=== PATIENT | male | born 1940 | race Caucasian/White ===

== ENCOUNTER 2017-04-07 00:22 | Inpatient (IN) | payer OTHER, MEDICARE ==
[~2017-04-07] VITALS: Ht 177.8 cm; Wt 102.1 kg
--- NOTE | 2017-04-07 01:11 | RADIOLOGY REPORT ---
EXAMINATION: XR PORTABLE CHEST CLINICAL INFORMATION: Fever. Chills. COMPARISON: Chest x-ray July 29, 2008 TECHNIQUE: Portable frontal view of the chest was obtained. FINDINGS: There is focal dense consolidation at the right lung base. Left lung is clear. No pulmonary vascular congestion. No pneumothorax. Cardiomediastinal contours normal. IMPRESSION: Right lower lobe pneumonia.
[2017-04-07 01:21] LABS: ABSOLUTE BASOPHIL COUNT 0 /CUMM (0.0-0.2); ABSOLUTE EOSINOPHIL COUNT 0 /CUMM (0.0-0.7); ABSOLUTE GRANULOCYTE CT 9.8 /CUMM (1.4-6.5); ABSOLUTE LYMPH COUNT 0.1 /CUMM (1.2-3.4); ABSOLUTE MONOCYTE COUNT 0.5 /CUMM (0.10-0.60); BASOPHIL % 0.5 % (0.0-2.0); EOSINOPHIL % 0.2 % (0-5); GRANULOCYTE % 93.6 % (42.2-75.2); HEMATOCRIT 43.8 % (42-52); MEAN CORPUSCULAR HGB 28.8 PG (27.0-31.0); MEAN CORPUSCULAR HGB CONC 33.2 G/DL (33.0-37.0); MEAN CORPUSCULAR VOLUME 86.9 FL (80.0-94.0); MEAN PLATELET VOLUME 8.8 FL (7.4-10.4); PLATELET COUNT 148 /CUMM (130-400); RED BLOOD CELL CT 5.05 /CUMM (4.70-6.10); WHITE BLOOD CELL COUNT 10.4 /CUMM (4.8-10.8)
[2017-04-07 01:26] LABS: PT 27.9 SEC (9.4-12.5); PTT 37 SEC (25-37)
--- NOTE | 2017-04-07 02:36 | ED GENERAL ADULT ---
History of Present Illness General Chief Complaint: Altered Mental Status Stated Complaint: AMS AND TREMORS Source: patient, family, old records, EMS Exam Limitations: no limitations Vital Signs & Intake/Output Vital Signs & Intake/Output Vital Signs Date Time Temp Pulse Resp B/P B/P Pulse O2 O2 Flow FiO2 Mean Ox Delivery Rate 04/07 0246 99.8 87 20 101/67 97 Nasal 2.0L Cannula 04/07 0226 100.0 04/07 0159 100.0 89 22 119/67 96 Nasal 2.0L Cannula 04/07 0107 99.6 04/07 0037 99.4 99 20 133/66 95 Nasal 2.0L Cannula Allergies Coded Allergies: MDX - Iodine (Iodine) (UNKNOWN 12/05/13) Core Measure Meds Pre-Hospital coumadin Triage Note: PT BIBA FROM HOME WITH SEVERE TREMORS FOLLOWED BY SHORT EPISODE OF AMS AT AROUND 11PM MARKETING UNDERWRITER. PT ARRIVES ALERT AND ORIENTED X THREE ON ARRIVAL. NO TREMORS NOTED AT THIS TIME. PT BIT HIS TOUGH MARKETING UNDERWRITER WHEN HE HAD TREMORS. NOTED OLD BLODDY MOUTH. NO ACTIVE BLEEDING. NO C/O CHEST PAIN. NO C/O RESPIRATORY DISTRESS. O2 SAT NOTED 93% RA. PLACED ON 2L NC STATING 96% AT THIS TIME. NO C/O COUGHS, NO C/O SORETHROAT. TEMPERATURE 99.4 ORAL. PT HAS HISTORY OF AFIB AND ON CURRENT COUMADIN. PT ALSO REPORTS THAT HE HAS "RIGHT LUNG 95% NOT WORKING" NO C/O "UNCOMFORTABLE"ABDOMEN. DENIES NAUSEA AND VOMTING. NO URINARY SYMTPOMS REPORTED. DR. RUST AT BEDSIDE. Triage Nurses Notes Reviewed? yes Onset: Just prior to arrival Duration: hour(s):, changing over time, continues in ED Timing: recent history Injury Environment: home Severity: severe No Modifying Factors: none Associated Symptoms: cough HPI: Spouse reports several days prior to admission patient is had nonproductive cough. Several hours prior to admission patient complains of shaking chills feeling cold with confusion weakness. There's been no fever nausea vomiting diarrhea chest pain shortness breath headache dysuria rash bleeding reported. Past History Travel History Traveled to [place] past 21 day No Medical History Any Pertinent Medical History? 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 No Review of Systems Review of Systems Constitutional: Reports: see HPI, chills, weakness. EENTM: Reports: no symptoms. Respiratory: Reports: see HPI, cough. Denies: sputum production. Cardiovascular: Reports: no symptoms. GI: Reports: no symptoms. Genitourinary: Reports: no symptoms. Musculoskeletal: Reports: no symptoms. Skin: Reports: no symptoms. Neurological/Psychological: Reports: no symptoms. Hematologic/Endocrine: Reports: no symptoms. Immunologic/Allergic: Reports: no symptoms. All Other Systems: Reviewed and Negative Physical Exam Physical Exam General Appearance: well developed/nourished, alert, awake, anxious, moderate distress Head: atraumatic, normal appearance Eyes: Bilateral: normal appearance, PERRL, EOMI. Ears, Nose, Throat: normal pharynx, normal ENT inspection, hearing grossly normal Neck: normal inspection, supple, full range of motion, no midline tenderness Respiratory: chest non-tender, no respiratory distress, quiet respiration, crackles Cardiovascular: regular rate/rhythm, normal peripheral pulses, norml femoral pulses equa Peripheral Pulses: 4+ carotid (R), 4+ carotid (L) Gastrointestinal: normal bowel sounds, soft, non-tender, no organomegaly Back: normal inspection, normal range of motion Extremities: normal inspection, normal capillary refill, normal range of motion, no edema Neurologic/Psych: no motor/sensory deficits, awake, alert, oriented x 3, normal mood/affect, 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 Skin: intact, normal color, warm/dry Lymphatic: no anterior cervical gustavo Core Measures ACS in differential dx? No CVA/TIA Diagnosis: No Sepsis Present: No Sepsis Focused Exam Completed? No Progress Differential Diagnoses I considered the following diagnoses in my evaluation of the patient: Pneumonia sepsis UTI. Plan of Care: Orders Procedure Date/time Status Heart Healthy Diet 04/07 B Active LACTIC ACID 04/07 0353 Active Patient Data 04/07 024 Active Add-on Test (ER Only) 04/07 024 Active RAPID VIRAL INFLUENZA A 04/07 020 Complete OXYGEN SETUP (GEN) 04/07 112 Active Saline Lock 04/07 112 Active Admit to inpatient 04/07 112 Active Vital Signs 04/07 112 Active Activity/Ambulation 04/07 112 Active Code Status 04/07 112 Active B-TYPE NATRIURETIC PEP (BNP) 04/07 109 Active BLOOD CULTURE 04/07 52 Active URINALYSIS 04/07 52 Complete TROPONIN LEVEL 04/07 52 Active PARTIAL THROMBOPLASTIN TIME 04/07 52 Complete PROTHROMBIN TIME 04/07 52 Complete LACTIC ACID 04/07 52 Active COMPREHENSIVE METABOLIC PANEL 04/07 52 Active CBC WITHOUT DIFFERENTIAL 04/07 52 Complete EKG 04/07 35 Active Laboratory Tests 04/07/17109: Anion Gap 14, Estimated GFR > 60, BUN/Creatinine Ratio 32.9 H, Glucose 112 H, Lactic Acid 1.5, Calcium 8.4, Total Bilirubin 0.8, AST 27, ALT 33, Alkaline Phosphatase 76, Troponin I 0.03, Qwz-W-Ppdqqmoetyg Pept Pending, Total Protein 6.9, Albumin 3.7, Globulin 3.2, Albumin/Globulin Ratio 1.2, PT 27.9 H, INR 2.68 H, APTT 37, CBC w Diff NO MAN DIFF REQ, RBC 5.05, MCV 86.9, MCH 28.8, MCHC 33.2 , RDW 14.0, MPV 8.8, Gran % 93.6 H, Lymphocytes % 1.3 L, Monocytes % 4.4, Eosinophils % 0.2, Basophils % 0.5, Absolute Granulocytes 9.8 H, Absolute Lymphocytes 0.1 L, Absolute Monocytes 0.5, Absolute Eosinophils 0, Absolute Basophils 0 04/07/1757: Urinalysis MOD H, Urine Color YEL, Urine Clarity HAZY H, Urine pH 6.0, Ur Specific [place] >= 1.030, Urine Protein 100 H, Urine Ketones TRACE H, Urine Nitrite NEG, Urine Bilirubin NEG, Urine Urobilinogen 2.0 H, Ur Leukocyte Esterase NEG, Ur Microscopic SEDIMENT EXAMINED, Urine RBC 5-10 H, Urine WBC RARE, Urine Bacteria FEW H, Urine Mucus MOD H, Urine Hemoglobin SMALL H, Urine Glucose NEG Microbiology 04/07 240 NASOPHARYN: Influenza Virus A & B Rapid Smear - COMP 04/07 119 BLOOD: Blood Culture - RECD 04/07 109 BLOOD: Blood Culture - RECD Diagnostic Imaging: Viewed by Me: Radiology Read. Discussed w/RAD: Radiology Read. CXR Impression: RLL infiltrate Initial ED EKG: normal intervals, normal p-waves, normal QRS complex, normal sinus rhythm, RBBB Prior EKG: unchanged Rhythm Strip: sinus tachycardia Departure Departure Disposition: STILL A PATIENT Condition: Stable Clinical Impression Primary Impression: Pneumonia Qualifiers: Pneumonia type: due to unspecified organism Laterality: right Lung location: lower lobe of lung Qualified Code: J18.1 - Lobar pneumonia, unspecified organism Secondary Impressions: Fever with chills Referrals: Karen Ho APRN (PCP/Family) Departure Forms: Customer Survey General Discharge Information Admission Note Spoke With: Mona Bernardo MD Documentation of Exam: Documentation of any treatments & extenuating circumstances including Concerns Regarding Discharge (functional status, medication knowledge or non-compliance, living conditions, etc.) that warrant an admission rather than observation: IV antibiotics follow cultures supplemental oxygen medication adjustment continuing care discharge planning Critical Care Note Critical Care Note Critical Care Time: non-applicable
--- NOTE | 2017-04-07 02:47 | History & Physical ---
Diego BOO,[facility] 04/07/17 0246: General Information and HPI MD Statement: I have seen and personally examined STEPHANIE ROSARIO and documented this H&P. The patient is a 76 year old M who presented with a patient stated chief complaint of [tremors]. Source of Information: patient, family History of Present Illness: 76 yo M pmhx of afib, paralyzed R diaghram, dysphagia vs lower GI dysmotility with hx of lower esophogeal stricture, constipation, presenting for tremors. Most of the history is given by the patient's Patient states that patient had dinner and was then watching TV when he suddenly felt cold. He started having tremors and chattering. His states that he kept saying he needed to urinate which the did have urinary incontinence. The states that the patient's mental status was intact during this episode. She did not think he appeared confused or was unable to follow commands. When we asked the patient if he bit his tongue the patient states that he missed his tongue however on exam there is blood stains on the front teeth and there appears to be some right oral trauma. The patient states that he did have some headaches and intermittent dizziness. He also states right abdominal soreness since yesterday. He states that his right foot is chronically more swollen than his left foot. The patient's states that he has been more fatigued within the past year and the patient sleeps 12-15 hours a day. The patient denies any cough, shortness of breath, sick contacts, changes in appetite, change in elimination, blurry vision, throat/ear pain, nasal congestion, chest pain, or palpitations. He states that he did get the pneumonia and flu vaccine today. Of note the patient states that around 15 years ago he had a colonoscopy for his ongoing GI dysmotility/dysphagia issue and afterwards was found to have pneumonia and right diaphragm paralysis. The patient has constipation at baseline. The patient also has a history of ?degenerative disc disease in which his states that he has lost 5 inches in height and has chronic pain which prevent him from being more active. The states that the patient is not as active as he used to be due to shortness of breath. She states that he is able to walk to the mailbox and back shortness of breath however the patient states that his shortness of breath is due to the back pain rather than a pulmonary cause. Allergies/Medications Allergies: Coded Allergies: iodine (UNKNOWN 04/07/17) Home Med list Albuterol Sulfate (Proventil Hfa) 90 MCG HFA.AER.AD 2 PUF INH Q4 PRN SOB ( Reported) Aspirin (Aspirin*) 81 MG TAB.CHEW 1 TAB PO DAILY HEART HEALTH (Reported) Cholecalciferol (Vitamin D3) 1,000 UNIT TABLET 2,000 UNITS PO DAILY BOWEL HEALTH (Reported) Docusate Sodium (Colace) 100 MG CAPSULE 1 CAP PO DAILY PRN CONSTIPATION ( Reported) Dutasteride (Avodart) 0.5 MG CAPSULE 1 CAP PO DAILY URINARY RETENION ( Reported) Ezetimibe (Zetia) 10 MG TABLET 1 TAB PO DAILY HIGH CHOLESTROL (Reported) Metoprolol Succ XL (Toprol XL) 25 MG TAB 1 TAB PO DAILY HIGH BLOOD PRESSURE ( Reported) Pantoprazole Sodium (Protonix) 20 MG TABLET.DR 1 TAB PO DAILY ACID REFLUX ( Reported) Warfarin Sodium (Coumadin) 4 MG TABLET 8 MG PO ANTICOAGULATION (Reported) Past History Travel History Traveled to [place] past 21 day No Medical History Cardiovascular: AFIB 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 GI: Reports: see HPI, abdominal pain. Musculoskeletal: Reports: see HPI (RLE swelling>). Exam & Diagnostic Data Last 24 Hrs of Vital Signs/I&O Vital Signs Date Time Temp Pulse Resp B/P B/P Pulse O2 O2 Flow FiO2 Mean Ox Delivery Rate 04/07 0356 98.5 89 20 100/67 98 Nasal Cannula 04/07 0246 99.8 87 20 101/67 97 Nasal 2.0L Cannula 04/07 0226 100.0 04/07 0159 100.0 89 22 119/67 96 Nasal 2.0L Cannula 04/07 0107 99.6 04/07 0037 99.4 99 20 133/66 95 Nasal 2.0L Cannula Intake & Output 04/07 0800 02 0000 04/06 1600 Intake Total 0 Output Total Balance 0 Intake, Oral 0 Patient 210 lb Weight Weight Reported by Patient Measurement Method Physical Exam General Appearance Alert, Oriented X3, Cooperative, No Acute Distress HEENT PERRLA Cardiovascular Regular Rate, Normal S1, Normal S2 Lungs Clear to Auscultation, slight decrease air movement in b/l bases Abdomen Normal Bowel Sounds, Soft, RLQ tenderness Extremities 1+ RLE, no CVA tendernes Vascular 2+ radial pulses Last 24 Hrs of Labs/Demario: Laboratory Tests 04/07/17 0110: Anion Gap 14, Estimated GFR > 60, BUN/Creatinine Ratio 32.9 H, Glucose 112 H, Lactic Acid 1.5, Calcium 8.4, Total Bilirubin 0.8, AST 27, ALT 33, Alkaline Phosphatase 76, Troponin I 0.03, Ppl-W-Qfplwkdiqte Pept 63.1, Total Protein 6.9, Albumin 3.7, Globulin 3.2, Albumin/Globulin Ratio 1.2, PT 27.9 H, INR 2.68 H, APTT 37, CBC w Diff NO MAN DIFF REQ, RBC 5.05, MCV 86.9, MCH 28.8, MCHC 33.2, RDW 14.0, MPV 8.8, Gran % 93.6 H, Lymphocytes % 1.3 L, Monocytes % 4.4, Eosinophils % 0.2, Basophils % 0.5, Absolute Granulocytes 9.8 H, Absolute Lymphocytes 0.1 L, Absolute Monocytes 0.5, Absolute Eosinophils 0, Absolute Basophils 0 04/07/17 0058: Urinalysis MOD H, Urine Color YEL, Urine Clarity HAZY H, Urine pH 6.0, Ur Specific [place] >= 1.030, Urine Protein 100 H, Urine Ketones TRACE H, Urine Nitrite NEG, Urine Bilirubin NEG, Urine Urobilinogen 2.0 H, Ur Leukocyte Esterase NEG, Ur Microscopic SEDIMENT EXAMINED, Urine RBC 5-10 H, Urine WBC RARE, Urine Bacteria FEW H, Urine Mucus MOD H, Urine Hemoglobin SMALL H, Urine Glucose NEG Microbiology 04/07 0241 NASOPHARYN: Influenza Virus A & B Rapid Smear - COMP 04/07 119 BLOOD: Blood Culture - RECD 04/07 109 BLOOD: Blood Culture - RECD Assessment/Plan Assessment: A: 76 yo M pmhx of afib, paralyzed R diaghram, dysphagia vs lower GI dysmotility with distal esophogeal stricture, constipation, found to have RLL pneumonia P: #pneumonia - possibly aspiration T max 100.0 CXR: RLL pna WBC 10.4 -cont unasyn #tremors episode Most likely 2/2 to pna -EEG to r/o seizures #SOB in the setting of RLE swelling and worsening immobility CTA negative for PE -dvt doppler #paralyzied R diaghram -consult dobuler #chronic backpain -due to osteoarthirtis of spine -cont pain control #htn BP 100/67 -curently holding home medications #gi dysmotility vs dysphagia with hx of distal esophogeal stricture hx of difficulty food getting stuck -barium swallow -cont PPI -outpt f/u #afib INR 2.68 -monitor INR and dose coumadin -cont metorpolol, aspirin #bph -finasteride #hld -ezetimibe #constipation -cont colace #sob -cont albuterol #FULL CODE #DVT prophylxis -warfarin As Ranked By This Provider Problem List: 1. Pneumonia Qualifiers Pneumonia type: due to unspecified organism Laterality: right Lung location: lower lobe of lung Qualified Code: J18.1 - Lobar pneumonia, unspecified organism Core Measures/Misc (11/14) Acute Coronary Syndrome ACS Diagnosis: No Congestive Heart Failure Congestive Heart Failure Diagnosis No Cerebrovascular Accident CVA/TIA Diagnosis: No VTE (View Protocol) VTE Risk Factors Acute Medical Illness No Mechanical VTE Prophylaxis d/t Other No VTE Pharm Prophylaxis d/t NA PharmProphylax ordered Sepsis (View protocol) Sepsis Present: No Kolby BOO,[facility] 04/07/17 0627: Resident Review Statement Resident Statement: examined this patient, discussed with project management intern, agreed with project management intern, discussed with family Other Findings: Mr. 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 History was obtained from patient and his , poor historian. reported that patient was doing okay, around 11 PM went upstairs to go to bed and started to feel cold, reported that patient was strongly shivering/ tremors, reported that he was about to bite his tongue and about to urinate. The denied any confusion, he was able to answer questions and communicate appropriately. Patient was BIBA. They denied any history of fever, previous history of chills or tremors, cough, chest pain, nausea or vomiting. He reported 1 day history of right lower quadrant abdominal pain, denied any diarrhea or constipation. Patient reported shortness of breath on ambulation, right lower extremity swelling, weakness and fatigability. Patient follow up with Dr. Cormier for atrial fibrillation, last INR check was 3 weeks ago while value was 2. Patient follow with Dr. Guerra and Dr. Michelle for right diaphragmatic paralysis. Patient reported history of choking while eating, food gets stuck in his esophagus, denied actual swallowing problems with solid food or thin liquid. Vitals impetuous 99.4 Tmax 100, pulse 99, respiratory rate 20 with saturation 95 % on 2 L nasal cannula, blood pressure 133/66 Physical exam as above Problem list #Seizure-like activity #Aspiration pneumonia #Possible PE, Wells criteria 6 moderate risk #Right lower extremity edema and swelling questionable DVT #Paroxysmal atrial fibrillation on warfarin #Esophageal stricture Plan -Admit to general medical floor -Vitals every shift -We'll obtain EEG as seizure couldn't be ruled out -Oxygen supplementation and TRC -Patient's history of choking raise high suspicious to aspiration, given the anatomical site of pneumonia right lower lobe consolidation support the theory of aspiration pneumonia. We will treat with Unasyn 3 g every 6h -CTA to rule out PE -Right lower extremity venous Doppler scan to rule out DVT -Continue warfarin as anticoagulation, INR on admission 2.6 -INR daily -We'll keep patient nothing by mouth pending swallow evaluation -Continue home medication Protonix 20, metoprolol XL 25 mg daily, ezetimibe , finasteride, Colace, aspirin 81, pro-air -Code full -DVT prophylaxis warfarin Diet nothing by mouth pending swallow evaluation Az BOO, [facility] 04/07/17 0654: Attending MD Review Statement Attending Statement Attending MD Statement: examined this patient, discuss w/resident/PA/COMMERCIAL MAKEUP ARTIST, agreed w/resident/PA/COMMERCIAL MAKEUP ARTIST, discussed with family, reviewed images, amended to note Attending Assessment/Plan: 76 yo M ex-smoker with h/o HTN, chronic back pain, DJD, BPH, asthma, Afib on coumadin, chronic elevated right hemidiaphragm, GERD, TRA, B12 deficiency, colon adenoma, was brought in for evaluation of sudden onset severe tremors/shivering associated with tongue biting and urinary incontinence. Patient's reports that patient was awake, alert and responding appropriately to questions during the event that last for 30 mins. No confusion, patient himself reported that he is biting his tongue and is being incontinent. No prior h/o seizures. Patient has had gradual physical deconditioning and decline over past 2 yrs and he hardly ambulates at this point. He is noted to have right leg swelling which is new. Patient also has chronic GI issues, and recurrent aspiration/ choking episodes as per . He reports food getting stuck in his lower esophagus ( especially solid foods) but denies dysphagia or odynophagia. Vitals stable except for Tmax 100 and sats 95% on 2L. Exam: AAO, dry mucous membranes, lethargic but arousable, Chest right basilar rhonchi+, otherwise clear, Heart S1S2 regular, Abd soft, mild right sided discomfort, RLE: swollen compared to left, peripheral pulses well felt. Labs: WBC 10.4, INR 2.68, BUN 23, lactic acid 1.5, trop neg. CXR: right lower lobe pneumonia. CTA: no PE, focal consolidation posterior right lower lobe. EKG: sinus rhythm RBBB, LAFB. Stress test (2013): normal. Rapid flu was negative. EGD (2016): gastric polyp, tertiary contractions in distal esophagus with intermittent, patent lower esophageal ring at the Z line at 39 cm, which "opened up" spontaneously and was not dilated. Assessment and plan: 1. Acute hypoxic respiratory failure 2. Right lower lobe pneumonia likely aspiration 3. Chronic aspiration/ choking episodes 4. Rule out seizure 5. Afib on coumadin, currently in sinus rhythm 6. RLE swelling, rule out DVT - Admit to general medicine - Panculture, urine legionella and strep Ag - TRC nebs - Fall, aspiration precautions - NPO, swallow eval - IV Unasyn - Obtain EEG - Lower extremity dopplers to rule out DVT - Patient is on coumadin with therapeutic INR, however given his LE swelling and sedentary status, CTA was done -ruled out PE. - Dose coumadin per INR - Outpatient GI follow up DVT ppx therapeutic INR on coumadin. Full code.
[2017-04-07] MEDS ORDERED: TOPROL XL25 M1 PO (04:21)
[2017-04-07] MEDS ORDERED: ASPIRIN81 M4 PO (04:21)
[2017-04-07] MEDS ORDERED: PROTONIX20 M1 PO (04:23)
[2017-04-07] MEDS ORDERED: AVODART0.5 M1 PO (04:24)
[2017-04-07] MEDS ORDERED: ZETIA10 M1 PO (04:33)
[2017-04-07] MEDS ORDERED: COUMADIN4 M1 PO (04:33)
[2017-04-07] MEDS ORDERED: PROVENTIL HFA6.7 GM INH (04:34)
[2017-04-07] MEDS ORDERED: VITAMIN D31000 UNI2 PO (04:34)
[2017-04-07] MEDS ORDERED: COLACE100 M1 PO (04:36)
--- NOTE | 2017-04-07 05:20 | Admission Certification ---
Admission Certification Certification Statement - As attending physician, I certify that at the time of - admission, based on clinical presentation, severity of - symptoms, need for further diagnostic testing and - therapeutic interventions, and risk of adverse outcomes - without in-hospital treatment, in my clinical assessment, - this patient requires an acute hospital stay for a minimum - of two nights or longer. I have also considered psychsocial - factors such as support system, advanced age, financial - issues, cognitive issues, and failed out-patient treatments, - past re-admission history, safety of patient, and lack of - compliance as applicable. Specific rationale supporting this admission is: Acute hypoxic respiratory failure, right lower lobe pneumonia.
[2017-04-07 06:06] LABS: ABSOLUTE BASOPHIL COUNT 0 /CUMM (0.0-0.2); ABSOLUTE EOSINOPHIL COUNT 0 /CUMM (0.0-0.7); ABSOLUTE GRANULOCYTE CT 10.6 /CUMM (1.4-6.5); ABSOLUTE LYMPH COUNT 0.5 /CUMM (1.2-3.4); ABSOLUTE MONOCYTE COUNT 0.5 /CUMM (0.10-0.60); BASOPHIL % 0.2 % (0.0-2.0); EOSINOPHIL % 0 % (0-5); GRANULOCYTE % 90.8 % (42.2-75.2); MEAN CORPUSCULAR HGB 28.7 PG (27.0-31.0); MEAN CORPUSCULAR HGB CONC 32.6 G/DL (33.0-37.0); MEAN CORPUSCULAR VOLUME 87.9 FL (80.0-94.0); MEAN PLATELET VOLUME 8.8 FL (7.4-10.4); PLATELET COUNT 132 /CUMM (130-400); RBC DISTRIBUTION WIDTH 14.2 % (11.5-14.5); RED BLOOD CELL CT 5.01 /CUMM (4.70-6.10); WHITE BLOOD CELL COUNT 11.7 /CUMM (4.8-10.8)
--- NOTE | 2017-04-07 06:11 | CT SCAN REPORT ---
EXAMINATION: CT ANGIOGRAM OF THE CHEST WITH AND WITHOUT CONTRAST (CT PULMONARY ANGIOGRAM FOR PE) CLINICAL INFORMATION: SOB, RLE SWELLING COMPARISON: Portable chest April 19, 2017 TECHNIQUE: Prior to contrast administration, noncontrast localization images were obtained. Subsequently, multidetector volumetric imaging was performed from the thoracic inlet to below the diaphragms following the administration of 80 mL Omnipaque 350 intravenous contrast. No contrast reaction reported. Sagittal, coronal, and MIP oblique sagittal reformatted images were obtained on the CT workstation, uploaded to PACS, and reviewed. Total exam dose-length product 588.04 mGy-cm. FINDINGS: QUALITY OF STUDY/CONTRAST BOLUS: Satisfactory PULMONARY ARTERIES: No central or segmental pulmonary emboli. THORACIC AORTA: Atherosclerotic vascular wall calcification of aorta. No aneurysm or dissection of aorta. Heart size is normal. There are vascular wall calcifications of the coronary arteries. LUNG: Asymmetric elevation of the right diaphragm compared to left. There is focal consolidation/infiltrate at the posterior right lower lobe. PLEURA: No pleural effusion or pneumothorax. MEDIASTINUM: Normal heart size. No pericardial effusion. No hilar or mediastinal lymphadenopathy. No evidence of septal bowing or right heart strain. CHEST WALL/AXILLA: No axillary or internal mammary lymphadenopathy. OSSEOUS STRUCTURES: Degenerative spondylosis of spine with endplate spurring of the vertebrae. UPPER ABDOMEN: 2 cm hepatic cyst anterior right lobe of liver the hepatic flexure of the colon extends anterior to the liver underneath the anterior right diaphragm. Right diaphragm is elevated above the left. IMPRESSION: 1. No evidence of pulmonary embolism. 2. Focal consolidation posterior right lower lobe. VTE: negative
--- NOTE | 2017-04-07 09:12 | ULTRASOUND REPORT ---
EXAMINATION: US TRIPLEX LOWER EXTREMITY, RIGHT CLINICAL INFORMATION: Right lower extremity swelling COMPARISON: None TECHNIQUE: Color-flow triplex imaging with spectral analysis and compression Doppler were performed on the lower extremity. FINDINGS: Respiratory variation, normal compression and augmented flow are noted throughout the lower extremity. The visualized common femoral vein, superficial femoral vein, profunda femoral vein, popliteal vein and midcalf peroneal and posterior tibial venous segments show no evidence of deep venous thrombosis. There is no Costello's cyst. IMPRESSION: No evidence of deep venous thrombosis involving the lower extremity.
--- NOTE | 2017-04-07 09:29 | PN- Housestaff ---
See Addendum Paulina Harmon 04/07/17 0925: Subjective Follow-up For: #Acute hypoxic respiratory failure #Right lower lobe pneumonia likely aspiration #Chronic aspiration/ choking episodes #Rule out seizure #Afib on coumadin, currently in sinus rhythm #RLE swelling, rule out DVT Subjective: No overnight event, patient was sleeping when I entered the room. Review of Systems Constitutional: Reports: see HPI. Objective Last 24 Hrs of Vital Signs/I&O Vital Signs Date Time Temp Pulse Resp B/P B/P Pulse O2 O2 Flow FiO2 Mean Ox Delivery Rate 04/07 823 97.2 68 18 119/63 97 Nasal 2.0L Cannula 04/07 0523 96.9 79 18 119/67 96 Nasal 2.0L Cannula 04/07 0356 98.5 89 20 100/67 98 Nasal Cannula 04/07 0246 99.8 87 20 101/67 97 Nasal 2.0L Cannula 04/07 0226 100.0 04/07 0159 100.0 89 22 119/67 96 Nasal 2.0L Cannula 04/07 0107 99.6 04/07 0037 99.4 99 20 133/66 95 Nasal 2.0L Cannula Intake & Output 04/07 1600 04/07 0800 04/07 0000 Intake Total 0 Output Total 250 Balance -250 Intake, Oral 0 Output, Urine 250 Patient 95.254 kg Weight Weight Reported by Patient Measurement Method Physical Exam General Appearance: Sleeping Cardiovascular: Regular Rate Lungs: Normal Air Movement Extremities: jerky movement x 2 on right hand Current Medications: Current Medications Sig/Ebonie Start time Last Medication Dose Route Stop Time Status Admin Acetaminophen 650 MG Q6P PRN 04/07 0415 AC PO Acetaminophen 0 .STK-MED ONE 04/07 010 DC PO Acetaminophen 650 MG ONCE ONE 04/07 0100 DC 04/07 PO 04/07 010 0107 Albuterol Sulfate 2 PUF Q4 PRN 04/07 0445 AC INH Ampicillin Sodium/ 3,000 MG Q6 04/07 0600 AC 04/07 Sulbactam Sodium IV 0530 Sodium Chloride 100 ML Ampicillin Sodium/ 0 .STK-MED ONE 04/07 0503 DC Sulbactam Sodium .ROUTE Aspirin 81 MG DAILY 04/07 1000 AC PO Ceftriaxone Sodium 0 .STK-MED ONE 04/07 0153 DC .ROUTE Ceftriaxone Sodium 1,000 MG ONCE ONE 04/07 011 DC 04/07 IV 04/07 011 0158 Diphenhydramine HCl 0 .STK-MED ONE 04/07 0439 DC .ROUTE Diphenhydramine HCl 50 MG ONCE ONE 04/07 0430 DC 04/07 IV 04/07 0431 0500 Docusate Sodium 100 MG DAILY PRN 04/07 0445 AC PO Doxycycline Hyclate 0 .STK-MED ONE 04/07 0153 DC PO Doxycycline Hyclate 100 MG ONCE ONE 04/07 011 DC 04/07 PO 04/07 011 0158 Ezetimibe 10 MG DAILY 04/07 1000 AC PO Finasteride 5 MG DAILY 04/07 1000 AC PO Hydrocortisone 100 MG ONE ONE 04/07 0430 DC 04/07 Sodium Succinate IV 04/07 430 0500 Ibuprofen 600 MG Q6P PRN 04/07 0415 AC PO Metoprolol Succinate 25 MG DAILY 04/07 1000 AC PO Omeprazole 0 .STK-MED ONE 04/07 0753 DC PO Omeprazole 20 MG DAILY AC 04/07 0700 AC 04/07 PO 0758 Sodium Chloride 1,000 ML .[id number] 04/07 0415 AC 04/07 IV 04/08 0654 0450 Warfarin Sodium 8 MG COUMADIN 1700 ONE 04/07 1700 AC PO 04/07 1701 Last 24 Hrs of Lab/Demario Results Last 24 Hrs of Labs/Mics: Laboratory Tests 04/07/17 0601: Anion Gap 12, Estimated GFR > 60, BUN/Creatinine Ratio 33.3 H, CBC w Diff NO MAN DIFF REQ, RBC 5.01, MCV 87.9, MCH 28.7, MCHC 32.6 L, RDW 14.2, MPV 8.8, Gran % 90.8 H, Lymphocytes % 4.6 L, Monocytes % 4.4, Eosinophils % 0, Basophils % 0.2, Absolute Granulocytes 10.6 H, Absolute Lymphocytes 0.5 L, Absolute Monocytes 0.5, Absolute Eosinophils 0, Absolute Basophils 0 04/07/17 0353: Lactic Acid Cancelled 04/07/17 0110: Anion Gap 14, Estimated GFR > 60, BUN/Creatinine Ratio 32.9 H, Glucose 112 H, Lactic Acid 1.5, Calcium 8.4, Total Bilirubin 0.8, AST 27, ALT 33, Alkaline Phosphatase 76, Troponin I 0.03, Ilo-L-Ooqxzixbrze Pept 63.1, Total Protein 6.9, Albumin 3.7, Globulin 3.2, Albumin/Globulin Ratio 1.2, PT 27.9 H, INR 2.68 H, APTT 37, CBC w Diff NO MAN DIFF REQ, RBC 5.05, MCV 86.9, MCH 28.8, MCHC 33.2, RDW 14.0, MPV 8.8, Gran % 93.6 H, Lymphocytes % 1.3 L, Monocytes % 4.4, Eosinophils % 0.2, Basophils % 0.5, Absolute Granulocytes 9.8 H, Absolute Lymphocytes 0.1 L, Absolute Monocytes 0.5, Absolute Eosinophils 0, Absolute Basophils 0 04/07/17 0058: Urinalysis MOD H, Urine Color YEL, Urine Clarity HAZY H, Urine pH 6.0, Ur Specific [place] >= 1.030, Urine Protein 100 H, Urine Ketones TRACE H, Urine Nitrite NEG, Urine Bilirubin NEG, Urine Urobilinogen 2.0 H, Ur Leukocyte Esterase NEG, Ur Microscopic SEDIMENT EXAMINED, Urine RBC 5-10 H, Urine WBC RARE, Urine Bacteria FEW H, Urine Mucus MOD H, Urine Hemoglobin SMALL H, Urine Glucose NEG Microbiology 04/07 0729 URINE ROUT: Legionella Antigen - CAN Cancelled: Cancelled via OE: WILL DO ADDON 04/07 0241 NASOPHARYN: Influenza Virus A & B Rapid Smear - COMP 04/07 119 BLOOD: Blood Culture - RECD 04/07 109 BLOOD: Blood Culture - RECD 04/07 57 URINE ROUT: Legionella Antigen - COMP 04/07 57 URINE ROUT: Streptococcus pneumoniae Antigen (M - COMP Assessment/Plan Assessment: 76 yo M pmhx of afib, paralyzed R diaghram, dysphagia vs lower GI dysmotility with distal esophogeal stricture, constipation, found to have RLL pneumonia P: #pneumonia - possibly aspiration T max 100.0 CXR: RLL pna WBC 10.4 -cont unasyn #tremors episode Most likely 2/2 to pna -EEG to r/o seizures -Pending neuro consult if EEG abnormal #SOB in the setting of RLE swelling and worsening immobility CTA negative for PE -dvt doppler negative for DVT #paralyzied R diaghram -Pending Dr. Forrest's consult #chronic backpain -due to osteoarthirtis of spine -cont pain control #htn BP 100/67 -curently holding home medications #gi dysmotility vs dysphagia with hx of distal esophogeal stricture hx of difficulty food getting stuck -NPO Pending Swallow eval -cont PPI -outpt f/u #afib INR 2.68 -monitor INR and dose coumadin -cont metorpolol, aspirin #bph -finasteride #hld -ezetimibe #constipation -cont colace #sob -cont albuterol #FULL CODE #DVT prophylxis w/ Warfarin Problem List: 1. Pneumonia 2. Fever with chills Pain Ratin Pain Location: NA Pain Goal: Remain pain free Pain Plan: see AP Tomorrow's Labs & Rationales: CBC/BEP/INR Lee Ann Olmstead 04/07/17 1353: Attending MD Review Statement Attending Statement Attending MD Statement: examined this patient, discuss w/resident/PA/TRUCK TRAILER FINAL INSPECTOR, agreed w/resident/PA/TRUCK TRAILER FINAL INSPECTOR, discussed with family, reviewed EMR data (avail), discussed with nursing, discussed with case mgmt, reviewed images, amended to note Attending Assessment/Plan: 76 yo M ex-smoker with h/o HTN, chronic back pain, DJD, BPH, asthma, Afib on coumadin, chronic elevated right hemidiaphragm, GERD, TRA, B12 deficiency, colon adenoma, was brought in for evaluation of sudden onset severe tremors/shivering associated with tongue biting and urinary incontinence. Poor ambulation at baseline. Vitals and labs noted. 98.1 HR 66 120/74 96 ON 2L nc. CTA chest focal consolidation posteroir right lower lobe. Assessment and plan: 1. Acute hypoxic respiratory failure 2. Right lower lobe pneumonia likely aspiration 3. Chronic aspiration/ choking episodes 4. Rule out seizure 5. Afib on coumadin, currently in sinus rhythm 6. RLE swelling, rule out DVT - NPO, swallow eval - IV Unasyn - Panculture, urine legionella and strep Ag - TRC nebs - Fall, aspiration precautions - f/u EEG, neurology eval. - Lower extremity dopplers to rule out DVT negative - c/w coumadin, INR. - Dose coumadin per INR - Outpatient GI follow up DVT ppx therapeutic INR on coumadin. Full code.
[2017-04-07 14:25] VITALS: BP 109/76
--- NOTE | 2017-04-07 16:51 | Cons- Pulmonary ---
General Information and HPI Consulting Request Date of Consult: 04/07/17 Requested By: Som Reason for Consult: Right lower lobe pneumonia History of Present Illness: Patient 76-year-old gentleman with long-standing idiopathic right paralyzed hemidiaphragm admitted with community-acquired acquired right lower lobe pneumonia. He reports having developed Rigors and fever he had no loss of consciousness but did have a sense of urinary urgency. He was conversant. CAT scan showed a right lower lobe consolidation. Patient has an esophageal stricture but denies dysphagia. Allergies/Medications Allergies: Coded Allergies: MDX - Iodine (Iodine) (UNKNOWN 12/05/13) Home Med List: Albuterol Sulfate (Proventil Hfa) 90 MCG HFA.AER.AD 2 PUF INH Q4 PRN SOB ( Reported) Aspirin (Aspirin*) 81 MG TAB.CHEW 1 TAB PO DAILY HEART HEALTH (Reported) Cholecalciferol (Vitamin D3) 1,000 UNIT TABLET 2,000 UNITS PO DAILY BOWEL HEALTH (Reported) Docusate Sodium (Colace) 100 MG CAPSULE 1 CAP PO DAILY PRN CONSTIPATION ( Reported) Dutasteride (Avodart) 0.5 MG CAPSULE 1 CAP PO DAILY URINARY RETENION ( Reported) Ezetimibe (Zetia) 10 MG TABLET 1 TAB PO DAILY HIGH CHOLESTROL (Reported) Metoprolol Succ XL (Toprol XL) 25 MG TAB 1 TAB PO DAILY HIGH BLOOD PRESSURE ( Reported) Pantoprazole Sodium (Protonix) 20 MG TABLET.DR 1 TAB PO DAILY ACID REFLUX ( Reported) Warfarin Sodium (Coumadin) 4 MG TABLET 8 MG PO ANTICOAGULATION (Reported) Review of Systems Review of Systems Constitutional: Reports: chills, fever. Cardiovascular: Reports: edema. Denies: chest pain. Respiratory: Reports: cough. Denies: hemoptysis, short of breath, sputum production, wheezing. GI: Denies: bloating, diarrhea, melena. Past History Travel History Traveled to [place] past 21 day No Medical History Blood Transfusion Hx: No Neurological: NONE EENT: NONE Cardiovascular: AFIB Respiratory: PARALIZED DIAPHRAM ON RIGHT Musculoskeletal: NONE Blood Disorders: NONE Cancer(s): NONE PROGRAM PROPOSALS COORDINATOR/Reproductive: NONE Surgical History Surgical History: non-contributory Psychosocial History Where Do You Live? Home Services at Home: None Smoking Status: Never Smoked ETOH Use: occasional use Illicit Drug Use: denies illicit drug use Exam & Diagnostic Data Last 24 Hrs of Vital Signs/I&O Vital Signs Date Time Temp Pulse Resp B/P B/P Pulse O2 O2 Flow FiO2 Mean Ox Delivery Rate 04/07 1430 93 Room Air Room Air 04/07 1425 98.7 63 20 109/76 93 Room Air Room Air 04/07 1359 Nasal 1.0L Cannula 04/07 1311 96 Nasal 2.0L Cannula 04/07 1300 98.1 66 18 120/74 98 Room Air 04/07 1109 97.1 60 18 123/66 97 Nasal 2.0L Cannula 04/07 1019 97.2 68 18 119/63 04/07 0824 97.2 68 18 119/63 97 Nasal 2.0L Cannula 04/07 0523 96.9 79 18 119/67 96 Nasal 2.0L Cannula 04/07 0356 98.5 89 20 100/67 98 Nasal Cannula 04/07 0246 99.8 87 20 101/67 97 Nasal 2.0L Cannula 04/07 0226 100.0 04/07 0159 100.0 89 22 119/67 96 Nasal 2.0L Cannula 04/07 0107 99.6 04/07 0037 99.4 99 20 133/66 95 Nasal 2.0L Cannula Intake & Output 04/07 1600 08 0800 04/07 0000 Intake Total 0 Output Total 540 250 Balance -540 -250 Intake, Oral 0 Output, Urine 540 250 Patient 225 lb 210 lb Weight Weight Reported by Patient Measurement Method Room air oxygen saturation is 93% HNT exam shows no adenopathy exam for chest shows decreased breath sounds at the right base there are no wheezes or crackles cardiac exam shows a regular rhythm murmurs abdomen is soft nontender and there is no lower extremity edema Last 48 Hrs of Labs/Demario: Laboratory Tests 04/07/17 0601: Anion Gap 12, Estimated GFR > 60, BUN/Creatinine Ratio 33.3 H, CBC w Diff NO MAN DIFF REQ, RBC 5.01, MCV 87.9, MCH 28.7, MCHC 32.6 L, RDW 14.2, MPV 8.8, Gran % 90.8 H, Lymphocytes % 4.6 L, Monocytes % 4.4, Eosinophils % 0, Basophils % 0.2, Absolute Granulocytes 10.6 H, Absolute Lymphocytes 0.5 L, Absolute Monocytes 0.5, Absolute Eosinophils 0, Absolute Basophils 0 04/07/17 0353: Lactic Acid Cancelled 04/07/17 0110: Anion Gap 14, Estimated GFR > 60, BUN/Creatinine Ratio 32.9 H, Glucose 112 H, Lactic Acid 1.5, Calcium 8.4, Total Bilirubin 0.8, AST 27, ALT 33, Alkaline Phosphatase 76, Troponin I 0.03, Zyr-R-Kfufwfckgfx Pept 63.1, Total Protein 6.9, Albumin 3.7, Globulin 3.2, Albumin/Globulin Ratio 1.2, PT 27.9 H, INR 2.68 H, APTT 37, CBC w Diff NO MAN DIFF REQ, RBC 5.05, MCV 86.9, MCH 28.8, MCHC 33.2, RDW 14.0, MPV 8.8, Gran % 93.6 H, Lymphocytes % 1.3 L, Monocytes % 4.4, Eosinophils % 0.2, Basophils % 0.5, Absolute Granulocytes 9.8 H, Absolute Lymphocytes 0.1 L, Absolute Monocytes 0.5, Absolute Eosinophils 0, Absolute Basophils 0 04/07/17 005: Urinalysis MOD H, Urine Color YEL, Urine Clarity HAZY H, Urine pH 6.0, Ur Specific [place] >= 1.030, Urine Protein 100 H, Urine Ketones TRACE H, Urine Nitrite NEG, Urine Bilirubin NEG, Urine Urobilinogen 2.0 H, Ur Leukocyte Esterase NEG, Ur Microscopic SEDIMENT EXAMINED, Urine RBC 5-10 H, Urine WBC RARE, Urine Bacteria FEW H, Urine Mucus MOD H, Urine Hemoglobin SMALL H, Urine Glucose NEG Microbiology 04/071 NASOPHARYN: Influenza Virus A & B Rapid Smear - COMP 04/07 57 URINE ROUT: Legionella Antigen - COMP 04/07 57 URINE ROUT: Streptococcus pneumoniae Antigen (M - COMP Assessment/Plan Impression/Plan: 76-year-old gentleman who appears to have had significant Reiger's and fever associated with right lower lobe consolidation likely a community-acquired 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 Recommendations: Begin Rocephin and Zithromax for community-acquired pneumonia. DC Unasyn. Obtain sputum culture. Aggressive pulmonary toilet and incentive spirometry. Assess for influenza. Consult Acknowledgment - Thank you for your consult request.
--- NOTE | 2017-04-07 18:01 | ELECTROENCEPHALOGRAM REPORT ---
Electroencephalogram Report Electroencephalogram Results Date of service: 04/07/17 Attending MD: Lee Ann Olmstead MD [place] Man: Baron EEG Number: [id number] Test Utilizes: 10-20 system, 21 lead 18 channel digital recording Pertinent Hx/Physical/Neuro Findings/Clin Diagnosis: 76 year old man with pneumonia and "seizure like activity". Inpatient Medications: Current Medications Sig/Ebonie Start time Last Medication Dose Route Stop Time Status Admin Acetaminophen 650 MG Q6P PRN 04/07 0415 AC PO Acetaminophen 0 .STK-MED ONE 04/07 0101 DC PO Acetaminophen 650 MG ONCE ONE 04/07 0100 DC 04/07 PO 04/07 010 0107 Albuterol Sulfate 2 PUF Q4 PRN 04/07 0445 AC INH Ampicillin Sodium/ 3,000 MG Q6 04/07 0600 DC 04/07 Sulbactam Sodium IV 1245 Sodium Chloride 100 ML Ampicillin Sodium/ 0 .STK-MED ONE 04/07 0503 DC Sulbactam Sodium .ROUTE Aspirin 81 MG DAILY 04/07 1000 AC 04/07 PO 1019 Aspirin 0 .STK-MED ONE 04/07 0952 DC PO Azithromycin 500 MG DAILY 04/07 1655 AC PO Ceftriaxone Sodium 1,000 MG DAILY 04/07 1654 AC IV Ceftriaxone Sodium 0 .STK-MED ONE 04/07 0153 DC .ROUTE Ceftriaxone Sodium 1,000 MG ONCE ONE 04/07 011 DC 04/07 IV 04/07 011 0158 Diphenhydramine HCl 0 .STK-MED ONE 04/07 0439 DC .ROUTE Diphenhydramine HCl 50 MG ONCE ONE 04/07 0430 DC 04/07 IV 04/07 0431 0500 Docusate Sodium 100 MG DAILY PRN 04/07 0445 AC PO Doxycycline Hyclate 0 .STK-MED ONE 04/07 0153 DC PO Doxycycline Hyclate 100 MG ONCE ONE 04/07 0115 DC 04/07 PO 04/07 0116 0158 Ezetimibe 10 MG DAILY 04/07 1000 AC 04/07 PO 1019 Finasteride 5 MG DAILY 04/07 1000 AC 04/07 PO 1019 Hydrocortisone 100 MG ONE ONE 04/07 0430 DC 04/07 Sodium Succinate IV 04/07 0431 0500 Ibuprofen 600 MG Q6P PRN 04/07 0415 AC PO Metoprolol Succinate 25 MG DAILY 04/07 1000 AC 04/07 PO 1019 Omeprazole 0 .STK-MED ONE 04/07 0753 DC PO Omeprazole 20 MG DAILY AC 04/07 0700 AC 04/07 PO 0758 Sodium Chloride 1,000 ML .[id number] 04/07 0415 AC 04/07 IV 04/08 0654 0450 Warfarin Sodium 8 MG COUMADIN 1700 ONE 04/07 1700 DC 04/07 PO 04/07 1701 1658 Interpretation: The recording demonstrates the usual frequency gradient, with faster beta rhythms being up front and slower alpha in the posterior regions. The average amplitude is very low 5-10mictovolt. Otherwise there are no paroxysmal sharps or spikes. The posterior dominant rhythm is 10 hertz bilaterally. Impression: Normal recording for age.
--- NOTE | 2017-04-07 21:52 | Event Note ---
Event Note Event Note: S: Attending notified patient blood cultures are + for gram positive cocci. Both Pairs B: Patient admitted for hypoxic respiratory failure. Currently on antibiotics: Azithromycin & ceftriaxone. A/R: Will continue to follow. Will sign out to AM team.
[2017-04-07 22:14] VITALS: BP 104/60
[2017-04-08 06:01] VITALS: BP 122/67
--- NOTE | 2017-04-08 07:29 | PN- Housestaff ---
Savannah Menjivar MD,[facility] 04/08/17 0729: Subjective Follow-up For: #Acute hypoxic respiratory failure #Right lower lobe pneumonia likely aspiration #Chronic aspiration/ choking episodes #Rule out seizure #Afib on coumadin, currently in sinus rhythm #RLE swelling, rule out DVT Tele-Events Since Last Visit: Off tele Subjective: Patient visited today, was lying in bed comfortably in no acute distress, was alert and oriented. No fever or chills, no shortness of breathing, no chest pain, no other events. Changed Antibiotics yesterday, reported improved SOB and occasional cough. Patient is GM hold placed in tele floor/, saturating >90%in room air Review of Systems Constitutional: Reports: see HPI. Objective Last 24 Hrs of Vital Signs/I&O Vital Signs Date Time Temp Pulse Resp B/P B/P Pulse O2 O2 Flow FiO2 Mean Ox Delivery Rate 04/08 1435 98.3 50 20 118/64 95 Room Air 04/08 0841 75 122/67 04/08 0601 97.2 75 20 122/67 94 04/07 2214 97.6 68 18 104/60 93 Intake & Output 04/08 1600 04/08 0800 04/08 0000 Intake Total 600 700 150 Output Total 250 300 Balance 350 400 150 Intake, IV 600 150 Intake, Oral 600 100 Number 1 1 Bowel Movements Output, Urine 250 300 Physical Exam General Appearance: Alert, Oriented X3, Cooperative, No Acute Distress Skin: No Significant Lesion Skin Temp/Moisture Exam: Warm/Dry Sepsis Skin Exam (color): Normal for Ethnicity HEENT: Atraumatic, EOMI, Mucous Membr. moist/pink Cardiovascular: Regular Rate, Normal S1, Normal S2 Lungs: Normal Air Movement, Ronchi and crackles Abdomen: Soft, No Tenderness Extremities: No Edema Current Medications: Current Medications Sig/Ebonie Start time Last Medication Dose Route Stop Time Status Admin Acetaminophen 650 MG Q6P PRN 04/07 0415 AC PO Albuterol Sulfate 2 PUF Q4 PRN 04/07 0445 AC INH Ampicillin Sodium/ 3,000 MG Q6 04/07 0600 DC 04/07 Sulbactam Sodium IV 1245 Sodium Chloride 100 ML Aspirin 81 MG DAILY 04/07 1000 AC 04/08 PO 0841 Azithromycin 500 MG DAILY 04/07 1655 AC 04/08 PO 0842 Ceftriaxone Sodium 1,000 MG DAILY 04/07 1654 AC 04/08 IV 0841 Docusate Sodium 100 MG DAILY PRN 04/07 0445 AC 04/08 PO 0845 Ezetimibe 10 MG DAILY 04/07 1000 AC 04/08 PO 0841 Finasteride 5 MG DAILY 04/07 1000 AC 04/08 PO 0841 Ibuprofen 600 MG Q6P PRN 04/07 0415 AC PO Metoprolol Succinate 25 MG DAILY 04/07 1000 AC 04/08 PO 0841 Nystatin 1 SHANNEN BID 04/08 1338 AC TOP Omeprazole 20 MG DAILY AC 04/07 0700 AC 04/08 PO 0631 Sodium Chloride 1,000 ML .[id number] 04/07 0415 DC 04/07 IV 04/08 0654 2112 Sodium Phosphate 1 UNIT ONCE ONE 04/07 2144 DC 04/08 LA 04/07 2145 0030 Warfarin Sodium 8 MG COUMADIN 1700 ONE 04/08 1700 UNVr PO 04/08 1701 Warfarin Sodium 8 MG COUMADIN 1700 ONE 04/07 1700 DC 04/07 PO 04/07 1701 1658 Last 24 Hrs of Lab/Demario Results Last 24 Hrs of Labs/Mics: Laboratory Tests 04/08/17726: Anion Gap 10, Estimated GFR > 60, BUN/Creatinine Ratio 40.0 H, PT 24.4 H, INR 2.34 H, CBC w Diff NO MAN DIFF REQ, RBC 4.82, MCV 88.5, MCH 29.1, MCHC 32.9 L, RDW 14.6 H, MPV 9.1, Gran % 84.4 H, Lymphocytes % 7.6 L, Monocytes % 6.9, Eosinophils % 0.9, Basophils % 0.2, Absolute Granulocytes 7.9 H, Absolute Lymphocytes 0.7 L, Absolute Monocytes 0.6, Absolute Eosinophils 0.1, Absolute Basophils 0 Assessment/Plan Assessment: 76 yo M pmhx of afib, paralyzed R diaphragm, dysphagia vs lower GI dysmotility with distal esophageal stricture, constipation, found to have RLL pneumonia P: #pneumonia - possibly aspiration T max 100.0 CXR: RLL pna WBC 10.4 -DCed unasyn - started Rocephin and azithromycin #tremors episode Most likely 2/2 to pna EEG to r/o seizures: Normal recording for age. -Follow neuro consult #SOB in the setting of RLE swelling and worsening immobility CTA negative for PE, dvt doppler negative for DVT - most likely PNA - continue to monitor #paralyzied R diaghram -follow Dr. 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 Pneumonia Pain Ratin Pain Location: none Pain Goal: Pain 4 or less Pain Plan: Continue current plan Tomorrow's Labs & Rationales: CBC BEP INR Lee Ann Olmstead 04/08/17 1245: Attending MD Review Statement Attending Statement Attending MD Statement: examined this patient, discuss w/resident/PA/GLUING MACHINE OPERATOR AUTOMATIC, agreed w/resident/PA/GLUING MACHINE OPERATOR AUTOMATIC, discussed with family, reviewed EMR data (avail), discussed with nursing, discussed with case mgmt, reviewed images, amended to note Attending Assessment/Plan: 76 yo M ex-smoker with h/o HTN, chronic back pain, DJD, BPH, asthma, Afib on coumadin, chronic elevated right hemidiaphragm, GERD, TRA, B12 deficiency, colon adenoma, was brought in for evaluation of sudden onset severe tremors/shivering associated with tongue biting and urinary incontinence. Poor ambulation at baseline. Vitals and labs noted. 98.1 HR 66 120/74 96 ON 2L nc. CTA chest focal consolidation posteroir right lower lobe. Assessment and plan: 1. Acute hypoxic respiratory failure ruled out 2. Right lower lobe pneumonia community acquired pneumonia with gram positive cocci. 3. Chronic aspiration/ choking episodes 4. EEG negative. 5. Afib on coumadin, currently in sinus rhythm 6. RLE swelling, negative for DVT - iv ceftriaxone and azithromycin as per pulm recommendations, blood cx positive. - TRC nebs, c/w coumadin, INR. - Dose coumadin per INR - Outpatient GI follow up/PCP in few days of discharge. Plan will be to change to PO antibiotics and possible discharge over weekend. DVT ppx therapeutic INR on coumadin. Full code.
[2017-04-08 08:09] LABS: ABSOLUTE BASOPHIL COUNT 0 /CUMM (0.0-0.2); ABSOLUTE EOSINOPHIL COUNT 0.1 /CUMM (0.0-0.7); ABSOLUTE GRANULOCYTE CT 7.9 /CUMM (1.4-6.5); ABSOLUTE LYMPH COUNT 0.7 /CUMM (1.2-3.4); ABSOLUTE MONOCYTE COUNT 0.6 /CUMM (0.10-0.60); BASOPHIL % 0.2 % (0.0-2.0); EOSINOPHIL % 0.9 % (0-5); GRANULOCYTE % 84.4 % (42.2-75.2); HEMATOCRIT 42.7 % (42-52); MEAN CORPUSCULAR HGB 29.1 PG (27.0-31.0); MEAN CORPUSCULAR HGB CONC 32.9 G/DL (33.0-37.0); MEAN CORPUSCULAR VOLUME 88.5 FL (80.0-94.0); MEAN PLATELET VOLUME 9.1 FL (7.4-10.4); PLATELET COUNT 162 /CUMM (130-400); RBC DISTRIBUTION WIDTH 14.6 % (11.5-14.5); RED BLOOD CELL CT 4.82 /CUMM (4.70-6.10); WHITE BLOOD CELL COUNT 9.4 /CUMM (4.8-10.8)
[2017-04-08 08:17] LABS: PT 24.4 SEC (9.4-12.5)
--- NOTE | 2017-04-08 08:21 | PN- Pulmonary ---
Subjective HPI/Critical Care Issues: Patient feels better blood cultures are positive with identification pending. 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 Objective Current Medications: Current Medications Sig/Ebonie Start time Last Medication Dose Route Stop Time Status Admin Acetaminophen 650 MG Q6P PRN 04/07 0415 AC PO Albuterol Sulfate 2 PUF Q4 PRN 04/07 0445 AC INH Ampicillin Sodium/ 3,000 MG Q6 04/07 0600 DC 04/07 Sulbactam Sodium IV 1245 Sodium Chloride 100 ML Aspirin 81 MG DAILY 04/07 1000 AC 04/07 PO 1019 Aspirin 0 .STK-MED ONE 04/07 0952 DC PO Azithromycin 500 MG DAILY 04/07 1655 AC 04/07 PO 2016 Ceftriaxone Sodium 1,000 MG DAILY 04/07 1654 AC 04/07 IV 2017 Docusate Sodium 100 MG DAILY PRN 04/07 0445 AC PO Ezetimibe 10 MG DAILY 04/07 1000 AC 04/07 PO 1019 Finasteride 5 MG DAILY 04/07 1000 AC 04/07 PO 1019 Ibuprofen 600 MG Q6P PRN 04/07 0415 AC PO Metoprolol Succinate 25 MG DAILY 04/07 1000 AC 04/07 PO 1019 Omeprazole 20 MG DAILY AC 04/07 0700 AC 04/08 PO 0631 Sodium Chloride 1,000 ML .[id number] 04/07 0415 DC 04/07 IV 04/08 0654 2112 Sodium Phosphate 1 UNIT ONCE ONE 04/07 2145 DC 04/08 OR 04/07 2146 0030 Warfarin Sodium 8 MG COUMADIN 1700 ONE 04/07 1700 DC 04/07 PO 04/07 1701 1658 Vital Signs & I&O Last 24 Hrs of Vitals and I&O: Vital Signs Date Time Temp Pulse Resp B/P B/P Pulse O2 O2 Flow FiO2 Mean Ox Delivery Rate 04/08 0601 97.2 75 20 122/67 94 04/07 2214 97.6 68 18 104/60 93 04/07 1430 93 Room Air Room Air 04/07 1425 98.7 63 20 109/76 93 Room Air Room Air 04/07 1359 Nasal 1.0L Cannula 04/07 1311 96 Nasal 2.0L Cannula 04/07 1300 98.1 66 18 120/74 98 Room Air 04/07 1109 97.1 60 18 123/66 97 Nasal 2.0L Cannula 04/07 1019 97.2 68 18 119/63 04/07 0824 97.2 68 18 119/63 97 Nasal 2.0L Cannula Intake & Output 04/08 1600 04/08 0800 04/08 0000 Intake Total 700 150 Output Total 300 Balance 400 150 Intake, IV 600 150 Intake, Oral 100 Number 1 Bowel Movements Output, Urine 300 Room air oxygen saturation 94% exam of his chest shows diminished breath sounds at the right base there are no wheezes cardiac exam shows a regular S1 and S2 without murmurs Impression/Plan Impression/Plan Impression/Plan: 76-year-old gentleman who appears to have had significant Rigors and fever associated with right lower lobe consolidation likely a community-acquired 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 Patient is clinically improved now on room air awaiting final identification of positive blood cultures. Recommendations: Begin Rocephin and Zithromax for community-acquired pneumonia. DC Unasyn. Obtain sputum culture. Aggressive pulmonary toilet and incentive spirometry. Assess for influenza. Follow-up cultures later this afternoon and adjust antibiotics accordingly. Mobilize out of bed
[2017-04-08 14:35] VITALS: BP 118/64
[2017-04-08 22:30] VITALS: BP 118/66
[2017-04-09 06:35] VITALS: BP 122/68
[2017-04-09 08:26] LABS: PT 22.9 SEC (9.4-12.5)
[2017-04-09 08:27] LABS: ABSOLUTE BASOPHIL COUNT 0 /CUMM (0.0-0.2); ABSOLUTE EOSINOPHIL COUNT 0.1 /CUMM (0.0-0.7); ABSOLUTE GRANULOCYTE CT 5.8 /CUMM (1.4-6.5); ABSOLUTE LYMPH COUNT 0.8 /CUMM (1.2-3.4); ABSOLUTE MONOCYTE COUNT 0.7 /CUMM (0.10-0.60); BASOPHIL % 0.2 % (0.0-2.0); EOSINOPHIL % 1.9 % (0-5); GRANULOCYTE % 78.2 % (42.2-75.2); HEMATOCRIT 42.7 % (42-52); MEAN CORPUSCULAR HGB 29.1 PG (27.0-31.0); MEAN CORPUSCULAR HGB CONC 32.9 G/DL (33.0-37.0); MEAN CORPUSCULAR VOLUME 88.5 FL (80.0-94.0); MEAN PLATELET VOLUME 9.2 FL (7.4-10.4); PLATELET COUNT 172 /CUMM (130-400); RBC DISTRIBUTION WIDTH 14.5 % (11.5-14.5); RED BLOOD CELL CT 4.82 /CUMM (4.70-6.10); WHITE BLOOD CELL COUNT 7.4 /CUMM (4.8-10.8)
--- NOTE | 2017-04-09 10:22 | PN- Housestaff ---
Anita BOO,[place] 04/09/17 1022: Subjective Follow-up For: Alpha Strep Bacteremia Acute hypoxic respiratory failure Right lower lobe pneumonia likely aspiration Chronic aspiration/ choking episodes Afib on coumadin, currently in sinus rhythm RLE swelling, rule out DVT Subjective: Patient was seen and examined today. Patient reports improvement in shortness of breath and tremors. Patient reports chills of resolved. Patient denies cough, chest pain, palpitations, fever, nausea/vomiting, diarrhea. Patient states that he is always constipated. Patient had Fleet enema today after which she had a bowel movement. Patient notes that at home he uses a Fleet enema approximately 2-3 times a week. Review of Systems Constitutional: Reports: no symptoms. Cardiovascular: Reports: no symptoms. Respiratory: Reports: see HPI. Gastrointestinal: Reports: no symptoms. Genitourinary: Reports: no symptoms. Musculoskeletal: Reports: no symptoms. Neurological/Psychological: Reports: see HPI. Hematologic/Endocrine: Reports: bruising. Objective Last 24 Hrs of Vital Signs/I&O Vital Signs Date Time Temp Pulse Resp B/P B/P Pulse O2 O2 Flow FiO2 Mean Ox Delivery Rate 04/09 2143 97.5 67 18 112/60 95 Room Air 04/09 1447 97.7 74 20 120/70 94 04/09 0813 70 122/68 04/09 0635 97.6 69 18 122/68 94 Room Air Intake & Output 04/09 1600 04/09 0800 04/09 0000 Intake Total 670 110 250 Output Total 250 Balance 670 110 0 Intake, IV 20 10 Intake, Oral 650 100 250 Output, Urine 250 Physical Exam General Appearance: Alert, Oriented X3, Cooperative, No Acute Distress Skin Temp/Moisture Exam: Warm/Dry HEENT: Atraumatic, Mucous Membr. moist/pink Cardiovascular: Normal S1, Normal S2, irregular rate Lungs: Clear to Auscultation, Normal Air Movement Abdomen: Normal Bowel Sounds, Soft, No Tenderness Extremities: No Clubbing, No Cyanosis, Normal Pulses, No Tenderness/Swelling, bilateral extremity edema (right greater than left) Current Medications: Current Medications Sig/Ebonie Start time Last Medication Dose Route Stop Time Status Admin Acetaminophen 650 MG Q6P PRN 04/07 0415 AC PO Albuterol Sulfate 2 PUF Q4 PRN 04/07 0445 AC INH Aspirin 81 MG DAILY 04/07 1000 AC 04/09 PO 0813 Azithromycin 500 MG DAILY 04/07 1655 AC 04/09 PO 0813 Ceftriaxone Sodium 1,000 MG DAILY 04/07 1654 AC 04/09 IV 0813 Docusate Sodium 100 MG DAILY PRN 04/07 0445 AC 04/08 PO 0845 Ezetimibe 10 MG DAILY 04/07 1000 AC 04/09 PO 0813 Finasteride 5 MG DAILY 04/07 1000 AC 04/09 PO 0813 Ibuprofen 600 MG Q6P PRN 04/07 0415 AC PO Metoprolol Succinate 25 MG DAILY 04/07 1000 AC 04/09 PO 0813 Nystatin 1 SHANNEN BID 04/08 1338 AC 04/09 TOP 1725 Omeprazole 20 MG DAILY AC 04/07 0700 AC 04/09 PO 0650 Sodium Phosphate 1 UNIT ONCE ONE 04/09 1315 DC 04/09 DC 04/09 1316 1417 Warfarin Sodium 8 MG COUMADIN 1700 ONE 04/09 1700 DC 04/09 PO 04/09 1701 1725 Last 24 Hrs of Lab/Demario Results Last 24 Hrs of Labs/Mics: Laboratory Tests 04/09/17 0720: Anion Gap 8, Estimated GFR > 60, BUN/Creatinine Ratio 31.7 H, PT 22.9 H, INR 2.20 H, CBC w Diff NO MAN DIFF REQ, RBC 4.82, MCV 88.5, MCH 29.1, MCHC 32.9 L, RDW 14.5, MPV 9.2, Gran % 78.2 H, Lymphocytes % 10.9 L, Monocytes % 8.8, Eosinophils % 1.9, Basophils % 0.2, Absolute Granulocytes 5.8, Absolute Lymphocytes 0.8 L, Absolute Monocytes 0.7 H, Absolute Eosinophils 0.1, Absolute Basophils 0 Assessment/Plan Assessment: 76 yo M pmhx of afib, paralyzed R diaphragm, dysphagia vs lower GI dysmotility with distal esophageal stricture, constipation, found to have RLL pneumonia Patients breathing improved today. Patient is currently afebrile with normal WBC on antibiotic therapy. Patient's blood cultures are currently growing alpha strep. Sensitivities are pending. Patient is covered with current antibiotic therapy. Alpha strep is typically seen as a contaminant however it is concerning that both bottles are growing the organism. Will consult ID for further recommendations. Patient requires RLE ultrasound to rule out DVT for increased swelling of right leg. P: #pneumonia - possibly aspiration T max 100.0 CXR: RLL pna WBC 10.4 -DCed unasyn - started Rocephin and azithromycin #tremors episode Most likely 2/2 to pna EEG to r/o seizures: Normal recording for age. -Follow neuro consult #SOB in the setting of RLE swelling and worsening immobility CTA negative for PE, dvt doppler negative for DVT - most likely PNA - continue to monitor #paralyzied R diaghram -follow Dr. 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 Pneumonia Pain Ratin Pain Location: n/a Pain Goal: Remain pain free Pain Plan: n/a Tomorrow's Labs & Rationales: bep, cbc, inr Atnwan Ann MD 04/09/17 3971: Attending MD Review Statement Attending Statement Attending MD Statement: examined this patient, discuss w/resident/PA/MANAGED SERVICES CONSULTANT, agreed w/resident/PA/MANAGED SERVICES CONSULTANT, discussed with family, reviewed EMR data (avail), discussed with nursing, discussed with case mgmt, reviewed images, amended to note Attending Assessment/Plan: The patient was seen and discussed with house staff and family. Blood cultures growing alpha strep? Appears to be responding to antibiotics. Some dependent swelling of RLE with mild erythema w/o warmth. Pulses good. + varicosities both LE (right >> left). Will obtain venous US RLE, ECHO, await ID input. Continue Ceftriaxone/Zithromax.
--- NOTE | 2017-04-09 10:33 | PN- Pulmonary ---
Subjective HPI/Critical Care Issues: Patient feels markedly improved he has no shortness of breath congestion or chest pain Objective Current Medications: Current Medications Sig/Ebonie Start time Last Medication Dose Route Stop Time Status Admin Acetaminophen 650 MG Q6P PRN 04/07 0415 AC PO Albuterol Sulfate 2 PUF Q4 PRN 04/07 0445 AC INH Aspirin 81 MG DAILY 04/07 1000 AC 04/09 PO 0813 Azithromycin 500 MG DAILY 04/07 1655 AC 04/09 PO 0813 Ceftriaxone Sodium 1,000 MG DAILY 04/07 1654 AC 04/09 IV 0813 Docusate Sodium 100 MG DAILY PRN 04/07 0445 AC 04/08 PO 0845 Ezetimibe 10 MG DAILY 04/07 1000 AC 04/09 PO 0813 Finasteride 5 MG DAILY 04/07 1000 AC 04/09 PO 0813 Ibuprofen 600 MG Q6P PRN 04/07 0415 AC PO Metoprolol Succinate 25 MG DAILY 04/07 1000 AC 04/09 PO 0813 Nystatin 1 SHANNEN BID 04/08 1338 AC 04/09 TOP 0813 Omeprazole 20 MG DAILY AC 04/07 0700 AC 04/09 PO 0650 Warfarin Sodium 3 MG .STK-MED ONE 04/08 1739 DC PO 04/08 1740 Warfarin Sodium 5 MG .STK-MED ONE 04/08 1739 DC PO 04/08 1740 Warfarin Sodium 8 MG COUMADIN 1700 ONE 04/08 1700 DC 04/08 PO 04/08 1701 1747 Vital Signs & I&O Last 24 Hrs of Vitals and I&O: Vital Signs Date Time Temp Pulse Resp B/P B/P Pulse O2 O2 Flow FiO2 Mean Ox Delivery Rate 04/09 0813 70 122/68 04/09 0635 97.6 69 18 122/68 94 Room Air 04/08 2230 98.0 69 18 118/66 93 Room Air 04/08 1435 98.3 50 20 118/64 95 Room Air Intake & Output 04/09 1600 04/09 0800 04/09 0000 Intake Total 110 250 Output Total 250 Balance 110 0 Intake, IV 10 Intake, Oral 100 250 Output, Urine 250 Oxygen saturation 94% exam of his chest shows diminished breath sounds right base there are no wheezes cardiac exam shows regular S1 and S2 without murmurs. Impression/Plan Impression/Plan Impression/Plan: 76-year-old gentleman who appears to have had significant Rigors and fever associated with right lower lobe consolidation likely a community-acquired 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 Blood cultures positive for alpha strep Recommendations: Narrow antibiotics based on blood culture results. Infectious disease input regarding further evaluation of output strep bacteremia. Continue pulmonary toilet
[2017-04-09 14:47] VITALS: BP 120/70
[2017-04-09 21:43] VITALS: BP 112/60
[2017-04-10 06:27] VITALS: BP 148/72
[2017-04-10 07:38] LABS: ABSOLUTE BASOPHIL COUNT 0 /CUMM (0.0-0.2); ABSOLUTE EOSINOPHIL COUNT 0.2 /CUMM (0.0-0.7); ABSOLUTE GRANULOCYTE CT 3.9 /CUMM (1.4-6.5); ABSOLUTE LYMPH COUNT 0.9 /CUMM (1.2-3.4); ABSOLUTE MONOCYTE COUNT 0.7 /CUMM (0.10-0.60); BASOPHIL % 0.1 % (0.0-2.0); EOSINOPHIL % 3.9 % (0-5); GRANULOCYTE % 68.1 % (42.2-75.2); HEMATOCRIT 44.1 % (42-52); MEAN CORPUSCULAR HGB 28.9 PG (27.0-31.0); MEAN CORPUSCULAR HGB CONC 32.8 G/DL (33.0-37.0); MEAN CORPUSCULAR VOLUME 88.2 FL (80.0-94.0); MEAN PLATELET VOLUME 9.2 FL (7.4-10.4); PLATELET COUNT 188 /CUMM (130-400); RBC DISTRIBUTION WIDTH 14.4 % (11.5-14.5); RED BLOOD CELL CT 5.01 /CUMM (4.70-6.10); WHITE BLOOD CELL COUNT 5.8 /CUMM (4.8-10.8)
[2017-04-10 08:14] LABS: PT 25.7 SEC (9.4-12.5)
[2017-04-10 09:15] VITALS: BP 148/72
--- NOTE | 2017-04-10 10:04 | PN- Pulmonary ---
Subjective HPI/Critical Care Issues: Patient feels well comfortable on room air without shortness of breath or cough. Objective Current Medications: Current Medications Sig/Ebonie Start time Last Medication Dose Route Stop Time Status Admin Acetaminophen 650 MG Q6P PRN 04/07 0415 AC PO Albuterol Sulfate 2 PUF Q4 PRN 04/07 0445 AC INH Aspirin 81 MG DAILY 04/07 1000 AC 04/10 PO 0915 Azithromycin 500 MG DAILY 04/07 1655 AC 04/10 PO 0915 Ceftriaxone Sodium 1,000 MG DAILY 04/07 1654 AC 04/10 IV 0916 Docusate Sodium 100 MG DAILY PRN 04/07 0445 AC 04/08 PO 0845 Ezetimibe 10 MG DAILY 04/07 1000 AC 04/10 PO 0915 Finasteride 5 MG DAILY 04/07 1000 AC 04/10 PO 0915 Ibuprofen 600 MG Q6P PRN 04/07 0415 AC PO Metoprolol Succinate 25 MG DAILY 04/07 1000 AC 04/10 PO 0915 Nystatin 1 SHANNEN BID 04/08 1338 AC 04/10 TOP 0914 Omeprazole 20 MG DAILY AC 04/07 0700 AC 04/10 PO 0528 Sodium Phosphate 1 UNIT ONCE ONE 04/09 1315 DC 04/09 UT 04/09 1316 1417 Warfarin Sodium 8 MG COUMADIN 1700 ONE 04/09 1700 DC 04/09 PO 04/09 1701 1725 Vital Signs & I&O Last 24 Hrs of Vitals and I&O: Vital Signs Date Time Temp Pulse Resp B/P B/P Pulse O2 O2 Flow FiO2 Mean Ox Delivery Rate 04/10 0915 67 148/72 04/10 0627 97.6 67 18 148/72 95 Room Air 04/09 2326 Room Air 04/09 2143 97.5 67 18 112/60 95 Room Air 04/09 1447 97.7 74 20 120/70 94 Intake & Output 04/10 1600 04/10 0800 04/10 0000 Intake Total 400 400 Output Total Balance 400 400 Intake, Oral 400 400 Air oxygen saturation 95% exam of his chest shows persistent decreased breath sounds at the right base cardiac exam shows regular S1 and S2 without murmurs Impression/Plan Impression/Plan Impression/Plan: 76-year-old gentleman who appears to have had significant Rigors and fever associated with right lower lobe consolidation likely a community-acquired 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 Blood cultures positive for alpha strep respiratory status has improved Recommendations: Narrow antibiotics based on blood culture results. Infectious disease input regarding further evaluation of output strep bacteremia. Continue pulmonary toilet follow-up on above recommendations no further pulmonary input
--- NOTE | 2017-04-10 13:19 | Patient Discharge Instructions ---
Discharge Instructions General Discharge Information You were seen/treated for: acute hypoxic resp failure, secondary to pneumonia Special Instructions: Please follow up with her primary care physician, ssrs developer and pulmonary doctor after your discharge. Please return to emergency if symptoms worsen. Diet Continue normal diet: Yes Recommended Diet: Heart Healthy Activity Full Activity/No Limits: No Activity Self Limited: Yes Acute Coronary Syndrome Inclusion Criteria At DC or during hospital stay patient has or had the following: ACS DIAGNOSIS No Discharge Core Measures Meds if any: Prescribed or Continued at Discharge Meds if any: NOT Prescribed or Continued at Discharge Congestive Heart Failure Inclusion Criteria At DC or during hospital stay patient has or had the following: CHF DIAGNOSIS No Discharge Core Measures Meds if any: Prescribed or Continued at Discharge Meds if any: NOT Prescribed or Continued at Discharge Cerebrovascular accident Inclusion Criteria At DC or during hospital stay patient has or had the following: CVA/TIA Diagnosis No Discharge Core Measures Meds if any: Prescribed or Continued at Discharge Meds if any: NOT Prescribed or Continued at Discharge Venous thromboembolism Inclusion Criteria VTE Diagnosis No VTE Type NONE VTE Confirmed by (Test) NONE Discharge Core Measures - Per Current guidelines, there needs to be overlap - treatment for the first 5 days of Warfarin therapy. - If discharged on Warfarin prior to 5 days of - overlap therapy, the patient will need to be - assessed for post discharge needs including - *Post discharge parental anticoagulation - *Warfarin and/or parental anticoagulation education - *Follow up date to check INR post discharge At least 5 days overlap therapy as Inpatient No Meds if any: Prescribed or Continued at Discharge Note: Overlap Therapy is Warfarin and Anticoagulant Meds if any: NOT Prescribed or Continued at Discharge
--- NOTE | 2017-04-10 13:48 | Discharge Summary ---
Hospital Course Allergies: Coded Allergies: iodine (UNKNOWN 04/07/17) Discharge Instructions Medications at Discharge Discharge Medications: Continue taking these medications: Aspirin (Aspirin*) 81 MG TAB.CHEW 1 Tablet ORAL DAILY Comments: Last Taken: 04/10/17 Time: 0900 AM Metoprolol Succ XL (Toprol XL) 25 MG TAB 1 Tablet ORAL DAILY Comments: Last Taken: 04/10/17 Time: 0900 AM Pantoprazole Sodium (Protonix) 20 MG TABLET.DR 1 Tablet ORAL DAILY Dutasteride (Avodart) 0.5 MG CAPSULE 1 Capsule ORAL DAILY Comments: NOT GIVEN AT HOSPITAL Warfarin Sodium (Coumadin) 4 MG TABLET 8 Milligram ORAL Ezetimibe (Zetia) 10 MG TABLET 1 Tablet ORAL DAILY Comments: Last Taken: 04/10/16 Time: 0900 AM Cholecalciferol (Vitamin D3) 1,000 UNIT TABLET 2,000 Units ORAL DAILY Comments: NOT GIVEN AT HOSPITAL Albuterol Sulfate (Proventil Hfa) 90 MCG HFA.AER.AD 2 Puff Inhale through mouth Every 4 hours as needed for SOB Docusate Sodium (Colace) 100 MG CAPSULE 1 Capsule ORAL DAILY as needed for CONSTIPATION Start taking the following new medications: Nystatin (Nystatin) 100,000 UNIT/GRAM CREAM..G. 1 Application On the skin TWICE DAILY Qty = 3 No Refills Comments: Last Taken: 04/10/17 Time: 0900 AM Amoxicillin/Potassium Clav (Augmentin 875-125 Tablet) 875 MG-125 MG TABLET 1 Tablet ORAL TWICE DAILY Qty = 20 No Refills
[2017-04-10] MEDS ORDERED: AUGMENTIN 875-1 EACH PO (13:56)
[2017-04-10] MEDS ORDERED: NYSTATIN15 G1 TOP (13:56)
--- NOTE | 2017-04-10 14:04 | PN- Housestaff ---
See Addendum Subjective Follow-up For: Pneumonia,CAP Shortness of breathing History of paralyzed right diaphragm Tele-Events Since Last Visit: Off telemetry Subjective: Patient visited today, pleasant gentleman was lying in bed comfortably in no acute distress, was alert and oriented. No fever or chills, no shortness of breathing, no chest pain, no other events. With improvement of the symptoms patient was discharged on PO antibiotics for a total of 2weeks with recommendations to follow in outpatient with PCP. Review of Systems Constitutional: Reports: see HPI. Objective Last 24 Hrs of Vital Signs/I&O Vital Signs Date Time Temp Pulse Resp B/P B/P Pulse O2 O2 Flow FiO2 Mean Ox Delivery Rate 04/10 0915 67 148/72 04/10 0627 97.6 67 18 148/72 95 Room Air 04/09 2326 Room Air 04/09 2143 97.5 67 18 112/60 95 Room Air Intake & Output 04/10 1600 04/10 0800 04/10 0000 Intake Total 400 400 Output Total Balance 400 400 Intake, Oral 400 400 Physical Exam General Appearance: Alert, Oriented X3, Cooperative, No Acute Distress Skin: No Significant Lesion Skin Temp/Moisture Exam: Warm/Dry Sepsis Skin Exam (color): Normal for Ethnicity HEENT: Atraumatic, EOMI, Mucous Membr. moist/pink Cardiovascular: Regular Rate, Normal S1, Normal S2 Lungs: bilateral ronchi and wheezing, improved Abdomen: Normal Bowel Sounds, Soft, No Tenderness Neurological: Normal Speech Extremities: No Edema Current Medications: Current Medications Sig/Ebonie Start time Last Medication Dose Route Stop Time Status Admin Acetaminophen 650 MG Q6P PRN 04/07 0415 DCD PO Albuterol Sulfate 2 PUF Q4 PRN 04/07 0445 DCD INH Aspirin 81 MG DAILY 04/07 1000 DCD 04/10 PO 0915 Azithromycin 500 MG DAILY 04/07 1655 DCD 04/10 PO 0915 Ceftriaxone Sodium 1,000 MG DAILY 04/07 1654 DCD 04/10 IV 0916 Docusate Sodium 100 MG DAILY PRN 04/07 0445 DCD 04/08 PO 0845 Ezetimibe 10 MG DAILY 04/07 1000 DCD 04/10 PO 0915 Finasteride 5 MG DAILY 04/07 1000 DCD 04/10 PO 0915 Ibuprofen 600 MG Q6P PRN 04/07 0415 DCD PO Metoprolol Succinate 25 MG DAILY 04/07 1000 DCD 04/10 PO 0915 Nystatin 1 SHANNEN BID 04/08 1338 DCD 04/10 TOP 0914 Omeprazole 20 MG DAILY AC 04/07 0700 DCD 04/10 PO 0528 Last 24 Hrs of Lab/Demario Results Last 24 Hrs of Labs/Mics: Laboratory Tests 04/10/17 0621: Anion Gap 9, Estimated GFR > 60, BUN/Creatinine Ratio 26.7 H, PT 25.7 H, INR 2.47 H, CBC w Diff NO MAN DIFF REQ, RBC 5.01, MCV 88.2, MCH 28.9, MCHC 32.8 L, RDW 14.4, MPV 9.2, Gran % 68.1, Lymphocytes % 15.7 L, Monocytes % 12.2 H, Eosinophils % 3.9, Basophils % 0.1, Absolute Granulocytes 3.9, Absolute Lymphocytes 0.9 L, Absolute Monocytes 0.7 H, Absolute Eosinophils 0.2, Absolute Basophils 0 Assessment/Plan Assessment: 76 yo M pmhx of afib presented with shortness of breathing and shakiness. PMH: paralyzed R diaphragm, dysphagia vs lower GI dysmotility with distal esophageal stricture, constipation, found to have RLL pneumonia Patient was admitted to (general medicine for all, however was placed in telemetry floor) for management of following conditions #pneumonia Patient had fever, increased WBC and chest x-ray suggesting pneumonia. Initially was treated with Unasyn for possible aspiration pneumonia, however later changed to ceftriaxone and azithromycin for community acquired pneumonia. Blood culture rebealed brandee strep. Patient was discharged on oral Augmentin for a total of 2 weeks of antibiotic treatment. #tremors episode Most likely 2/2 to pna. We continued to monitor. EEG was done to rule out seizure which revealed normal recording for age. Neurology was consulted. #SOB in the setting of RLE swelling and worsening immobility CTA negative for PE, dvt doppler negative for DVT. SOB was most likely related to0 pneumonia. #paralyzied R diaghram - Possibly contributing to shortness of breathing. We treated underlying disease and continue to monitor. 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 Swallow evaluation was done and patient was started on diet. #afib We continued metoprolol and aspirin, and dozing Coumadin based on INR. #FULL CODE #DVT prophylxis w/ Warfarin Patient was discharged with recommendations below: Please follow up with her primary care physician, marketing co op and pulmonary doctor after your discharge. Please return to emergency if symptoms worsen. Problem List: 1. Pneumonia Pain Ratin Pain Location: None Pain Goal: Pain 4 or less Pain Plan: N/A Tomorrow's Labs & Rationales: N/A Discharge Plan Discharge Disposition: home Stable for Discharge? Yes Anticipated Discharge (Day): today
--- NOTE | 2017-04-10 16:11 | Discharge Summary ---
Visit Information Visit Dates Admission Date: 04/07/17 Discharge Date: 04/10/17 Hospital Course Course Attending Physician: kole Ann Primary Care Physician: Karen Ho APRN Hospital Course: 76 yo M pmhx of afib presented with shortness of breathing and shakiness. PMH: paralyzed R diaphragm, dysphagia vs lower GI dysmotility with distal esophageal stricture, constipation, found to have RLL pneumonia Patient was admitted to [facility] (general medicine for all, however was placed in telemetry floor) for management of following conditions #pneumonia Patient had fever, increased WBC and chest x-ray suggesting pneumonia. Initially was treated with Unasyn for possible aspiration pneumonia, however later changed to ceftriaxone and azithromycin for community acquired pneumonia. Blood culture rebealed brandee strep. Patient was discharged on oral Augmentin for a total of 2 weeks of antibiotic treatment. #tremors episode Most likely 2/2 to pna. We continued to monitor. EEG was done to rule out seizure which revealed normal recording for age. Neurology was consulted. #SOB in the setting of RLE swelling and worsening immobility CTA negative for PE, dvt doppler negative for DVT. SOB was most likely related to0 pneumonia. #paralyzied R diaghram - Possibly contributing to shortness of breathing. We treated underlying disease and continue to monitor. 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 Swallow evaluation was done and patient was started on diet. #afib We continued metoprolol and aspirin, and dozing Coumadin based on INR. #FULL CODE #DVT prophylxis w/ Warfarin Allergies: Coded Allergies: iodine (UNKNOWN 04/07/17) Disposition Summary Disposition Principal Diagnosis: Pneumonia Additional Diagnosis: Lower extremity swelling Paralyzed right diaphragmatic Discharge Disposition: home or self care Discharge Instructions General Discharge Information Code Status: Full Code Patient's Diet: regular diet Patient's Activity: Self limtied Follow-Up Instructions/Appts: Please follow up with her primary care physician, lacquerer and pulmonary doctor after your discharge. Please return to emergency if symptoms worsen. Medications at Discharge Discharge Medications: Continue taking these medications: Aspirin (Aspirin*) 81 MG TAB.CHEW 1 Tablet ORAL DAILY Comments: Last Taken: 04/10/17 Time: 0900 AM Metoprolol Succ XL (Toprol XL) 25 MG TAB 1 Tablet ORAL DAILY Comments: Last Taken: 04/10/17 Time: 0900 AM Pantoprazole Sodium (Protonix) 20 MG TABLET.DR 1 Tablet ORAL DAILY Dutasteride (Avodart) 0.5 MG CAPSULE 1 Capsule ORAL DAILY Comments: NOT GIVEN AT HOSPITAL Warfarin Sodium (Coumadin) 4 MG TABLET 8 Milligram ORAL Ezetimibe (Zetia) 10 MG TABLET 1 Tablet ORAL DAILY Comments: Last Taken: 04/10/16 Time: 0900 AM Cholecalciferol (Vitamin D3) 1,000 UNIT TABLET 2,000 Units ORAL DAILY Comments: NOT GIVEN AT HOSPITAL Albuterol Sulfate (Proventil Hfa) 90 MCG HFA.AER.AD 2 Puff Inhale through mouth Every 4 hours as needed for SOB Docusate Sodium (Colace) 100 MG CAPSULE 1 Capsule ORAL DAILY as needed for CONSTIPATION Start taking the following new medications: Nystatin (Nystatin) 100,000 UNIT/GRAM CREAM..G. 1 Application On the skin TWICE DAILY Qty = 3 No Refills Comments: Last Taken: 04/10/17 Time: 0900 AM Amoxicillin/Potassium Clav (Augmentin 875-125 Tablet) 875 MG-125 MG TABLET 1 Tablet ORAL TWICE DAILY Qty = 20 No Refills Copies To: Lon BOO,Ulysses Junior; Karen Ho APRN Attending MD Review Statement Documenting Attending: Kole Ann MD Other Findings: The patient was seen and agree with the plan of care as outlined. The patient had alpha strep growing from 2/2 bottles of blood cultures. Remained afebrile on IV abx. ID was not available to see patient and he wished discharge. ECHO was ordered (also not available) and was deferred as he had no heart murm. OK to discharge to home with total of 2 week course of Abx (Augmentin to complete course). Will follow up with PCP (Karen Ho). Pending clinical course may wish to consult ID (Dr. May) and do OP ECHO. Alpha strep may be a contaminent, however was in 2/2 blood cultures.
== END 2017-04-10 14:30 | DRG 195 ==
LOC: ERH 00:22 → ERHI 01:13 → 1NO 01:13 → ERHI 07:50 → ENRESERV 13:03 → ENTRNSPT 13:40 → EDTRNSPTSTS 13:54 → EDTRNSPT 13:54 → 1NO 13:59 → CMPTRNSPT 14:07 → 1NO 14:10 → ENTRNSPT 04-10 14:21 → ENPENDDIS 04-10 14:22 → 1NO 04-10 14:30 → CMPTRNSPT 04-10 15:01
PROVIDERS: Emergency Medicine; Internal Medicine; Radiology Vascular & Interventional Radiology; Student in an Organized Health Care Education/Training Program
DX: J18.9 Pneumonia, unspecified organism (principal); I48.0 Paroxysmal atrial fibrillation; J98.6 Disorders of diaphragm; R25.1 Tremor, unspecified; G89.29 Other chronic pain; M47.9 Spondylosis, unspecified; I10 Essential (primary) hypertension; K59.00 Constipation, unspecified; J45.909 Unspecified asthma, uncomplicated; K21.9 Gastro-esophageal reflux disease without esophagitis; E78.5 Hyperlipidemia, unspecified; Z86.010 Personal history of colon polyps; R32 Unspecified urinary incontinence; Z79.01 Long term (current) use of anticoagulants
CPT/HCPCS: 1NSP; 36415; 71045; 81001; 82436; 87040; 87070; 87071; 87449; 87450; 87804; 87804-59; 93005; 93010; 95816; 96365; 96375; 97110-GO; 97116-GO; 97161-GP; J0456; J0696; J1200; J1720; J3490